=== PATIENT | male | born 1990 ===

== ENCOUNTER 2017-05-28 14:04 | Emergency (ER) | payer OTHER ==
--- NOTE | 2017-05-28 15:19 | RAD ---
HISTORY: Left ankle and lower leg injury COMPARISONS: None VIEWS: 5, Frontal, lateral, and oblique views of the left ankle with frontal and lateral views of the left foreleg FINDINGS: BONE DENSITY: Normal. BONES: There is no displaced fracture. JOINTS: There is no arthropathy. ALIGNMENT: There is no dislocation. SOFT TISSUES: Unremarkable. OTHER FINDINGS: None. IMPRESSION: NO ACUTE OSSEOUS INJURY. IF SYMPTOMS PERSIST, RECOMMEND REPEAT IMAGING.
--- NOTE | 2017-05-28 16:12 | UC ---
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 prior ankle sprain ~ 1 year ago after stepping on tennis ball== sprain. no numbness, tingling. - History of Current Complaint Chief Complaint: UCLowerExtremity Stated Complaint: ANKLE INJURY Time Seen by Provider: 05/28/17 15:17 Hx Obtained From: Patient Onset/Duration: Sudden Onset Severity Initially: Mild Severity Currently: Moderate Pain Intensity: 6 Pain Scale Used: 0-10 Numeric Aggravating Factor(s): Standing, Ambulation Alleviating Factor(s): Rest Able to Bear Weight: No - has not tried - Allergies/Home Medications Allergies/Adverse Reactions: Allergies Allergy/AdvReac Type Severity Reaction Status Date / Time carlos eduardo Allergy Severe FACIAL Verified 05/28/17 14:30 FLUSHING/HEAT/RASH Home Medications: Home Medications NK [No Home Medications Reported] 05/28/17 [History Confirmed 05/28/17] PMH/Surg Hx/FS Hx/Imm Hx Previously Healthy: Yes - Surgical History Surgical History: Yes Surgery Procedure, Year, and Place: DENTAL (WISDOM TEETH) - Social History Alcohol Use: Occasionally Substance Use Type: None Smoking Status (MU): Never Smoked Tobacco Review of Systems Constitutional: Negative Musculoskeletal: Arthralgia, Decreased ROM, Edema, Myalgia Is Patient Immunocompromised?: No All Other Systems Reviewed And Are Negative: Yes Physical Exam Triage Information Reviewed: Yes Appearance: Well-Appearing, No Pain Distress, Well-Nourished Vital Signs: Initial Vital Signs Temp 98.7 F 05/28/17 14:26 Pulse 60 05/28/17 14:26 Resp 16 05/28/17 14:26 BP 131/63 05/28/17 14:26 Pulse Ox 97 05/28/17 14:26 Vital Signs Reviewed: Yes Eyes: Positive: Conjunctiva Clear Musculoskeletal: Positive: Strength Intact, ROM Intact - DP/ PF L ankle, No Edema, Other: - no bruising, no swelling, tender to palpation over posterior lat mal. no med mal tenderness, pain. pain with inversion, full PF, none with eversion. patient able to stand, bear weight without walking Neurological: Positive: Alert Psychological Exam: Normal Skin Exam: Normal Lower Extremity Course/Dx - Course Course Of Treatment: x-rays negative for fx, bony abnormality, walking boot placed, follow up with [facility], limit weight bearing- increase RICE - Differential Dx/Diagnosis Differential Diagnosis/HQI/PQRI: Fracture (Closed), Sprain, Tendonitis, Tenosynovitis Provider Diagnoses: L ankle sprain Discharge - Discharge Plan Condition: Good Disposition: HOME Patient Education Materials: Ankle Sprain (ED), R.I.C.E. Treatment (ED) Referrals: [facility] - Ruddy MENDEZ [Medical Doctor] - No Primary Care Phys,NOPCP [Primary Care Provider] - Additional Instructions: - Elevate, ice, rest - Motrin/ Ibuprofen or tylenol for pain - Boot- weight bearing as tolerated in boot, non-weight bearing out of boot - FOllow up with [facility] within 2-3 days for re-eval
== END 2017-05-28 16:00 | disposition home or self-care (01) ==
LOC: UCEAST 14:04
DX: S93.402A Sprain of unspecified ligament of left ankle, initial encounter (principal); W17.89XA Other fall from one level to another, initial encounter; Y93.24 Activity, cross country skiing; Y92.89 Other specified places as the place of occurrence of the external cause
CPT/HCPCS: 99203; G0463